=== PATIENT | female | born 1965 | race Caucasian/White ===

== ENCOUNTER → 2022-03-06 09:08 | Outpatient (REF) | payer OTHER, SELFPAY | LOC: HO.SL 09:08 | PROVIDERS: PCP Nurse Practitioner; Visit Provider Psychiatry & Neurology Neurology | DX: Z13.89 Encounter for screening for other disorder (principal) ==

== ENCOUNTER → 2022-03-18 09:26 | Outpatient (REF) | payer OTHER, SELFPAY | LOC: HO.SL 09:26 | PROVIDERS: PCP Nurse Practitioner; Visit Provider Psychiatry & Neurology Neurology | DX: R06.83 Snoring (principal); R68.89 Other general symptoms and signs | CPT/HCPCS: 95806 ==

== ENCOUNTER 2022-04-16 07:20 | Outpatient (REF) | payer OTHER, SELFPAY ==
--- NOTE | ~2022-04-16 | MR_ITS ---
EXAMINATION: MR BRAIN WITHOUT CONTRAST CLINICAL INFORMATION: Reported fall. Loss of consciousness. No memory of event. COMPARISON: None. TECHNIQUE: Multiplanar, multisequence imaging of the brain was performed without contrast. FINDINGS: No diffusion abnormalities are identified to suggest an acute or subacute infarct. The ventricles are normal in size. No mass effect or midline shift is seen. No brain parenchymal signal abnormality is noted. No extra-axial fluid collections are seen. The brainstem and cerebellum are normal. The gradient refocused acquisition is normal. The craniovertebral junction, marrow signal, and midline structures are normal. The major intracranial flow voids at the level of the [place] are preserved. The dural venous sinus flow voids are maintained. The mastoid air cells and paranasal sinuses are fairly well aerated. MR/MR head/brain wo con IMPRESSION: No acute process. Normal MRI of the brain.
== END 2022-04-16 07:21 | disposition home or self-care (01) ==
LOC: HO.MRI 07:20
PROVIDERS: Visit Provider Nurse Practitioner Family
DX: R40.20 Unspecified coma (principal); W19.XXXA Unspecified fall, initial encounter
CPT/HCPCS: 70551

== ENCOUNTER → 2022-12-17 08:11 | Outpatient (BNVA) | payer OTHER, SELFPAY | PROVIDERS: PCP Nurse Practitioner; Visit Provider Nurse Practitioner Family | DX: Z13.89 Encounter for screening for other disorder (principal) ==